=== PATIENT | male | born 1970 | race Caucasian/White ===

== ENCOUNTER 2016-05-09 07:01 | Emergency (ER) | payer SELFPAY ==
[~2016-05-09] VITALS: Ht 177.8 cm; Wt 91.0 kg
[2016-05-09 07:10] VITALS: BP 120/90; PULSE 71; RESP 16; TEMP 98.1; O2SAT 97
[2016-05-09] MEDS ORDERED: HYDR-3535 PO (07:20)
[2016-05-09] MEDS ORDERED: TIZA4CAP3 PO (07:20)
[2016-05-09] MEDS ORDERED: MOBI7.5T PO (07:20)
--- NOTE | 2016-05-09 07:32 | PD ---
HPI Chief Complaint: ENT Complaint Time Seen by Provider: 07:18 Travel History International Travel<30 days: No Contact w/Intl Traveler<30days: No Traveled to known affect area: No History of Present Illness HPI This patient complains of a wax blockage in his left ear. He is having difficulty hearing. He has no pain. Severity of symptoms is mild. PFSH Past Medical History Cancer: No Cardiovascular Problems: No Congestive Heart Failure: No Diabetes: No Diminished Hearing: No Gastrointestinal Disorders: Yes (GB ) Glaucoma: No Genitourinary: Yes (Retention) Headaches: Yes Hepatitis: Yes (C) Hiatal Hernia: No Hypertension: No Implanted Vascular Access Dvce: No Musculoskeletal: Yes (Bone spurs feet) Neurologic: Yes Respiratory: No Immunizations Current: Yes Migraines: Yes Thyroid Disease: No Tetanus Vaccination: < 5 Years Influenza Vaccination: Yes Past Surgical History Abdominal Surgery: Yes (APPENDECTOMY 1981) Appendectomy: Yes Cardiac Surgery: No Ear Surgery: No Endocrine Surgery: No Eye Surgery: No Genitourinary Surgery: Yes (hemorrhoids 08-14-) Gynecologic Surgery: Yes Neurologic Surgery: No Oral Surgery: No Pacemaker: No Thoracic Surgery: No Other Surgery: Yes (Hemorrhoidectomy) Social History Alcohol Use: Yes (Occ.) Tobacco Use: Yes (/2 ppd) Substance Use: No (denies) Allergies-Medications (Allergen,Severity, Reaction): Coded Allergies: Bactrim (Verified Allergy, Severe, Swelling, 05/09/16) Cipro (Verified Allergy, Intermediate, FACIAL SWELLING/FLUSHING, 05/09/16) Flexeril (Verified Allergy, Intermediate, Rash, 05/09/16) Toradol (Verified Allergy, Intermediate, 05/09/16) Tramadol (Verified Allergy, Intermediate, 05/09/16) Reported Meds & Prescriptions Reported Meds & Active Scripts Active Reported Tizanidine (Tizanidine HCl) 4 Mg Cap 4 Mg PO TID Mobic (Meloxicam) 7.5 Mg Tab 10 Mg PO TID Lortab (Hydrocodone-Acetaminophen) 10-325 Mg Tab 1 Tab PO Q4H PRN Review of Systems General / Constitutional: No: Fever HENT: No: Headaches Cardiovascular: No: Chest Pain or Discomfort Physical Exam Narrative NECK: Symmetrical appearance, midline trachea. No mass or crepitus. Thyroid without enlargement, tenderness, or mass. SKIN: Inspection shows no rash or ulcers. Palpation shows no induration or nodules. Throat clear Left TM is nonvisible due to cerumen impaction. Data Data Last Documented VS Vital Signs Date Time Temp Pulse Resp B/P Pulse Ox O2 Delivery O2 Flow Rate FiO2 05/09/16 07:10 98.1 71 16 120/90 97 MDM Medical Decision Making Medical Screen Exam Complete: Yes Emergency Medical Condition: Yes Medical Record Reviewed: Yes Differential Diagnosis Cerumen impaction, otitis media, otitis externa Narrative Course I have reviewed the patient's electronic medical record. In here multiple times for minor complaints Patient has left-sided cerumen impaction. It was irrigated out and significant amount of wax removed Diagnosis Primary Impression: Impacted cerumen of left ear Additional Instructions: The patient was advised to follow up with their physician and return if they worsen. Med/Other Pt SpecificInfo: Other Disposition: 01 DISCHARGE HOME Condition: Stable Tramaine Maria MD May 09, 2016 07:32
== END 2016-05-09 07:42 | disposition home or self-care (01) ==
LOC: PHED 07:01
DX: H61.22 Impacted cerumen, left ear (principal); F17.200 Nicotine dependence, unspecified, uncomplicated; Z87.19 Personal history of other diseases of the digestive system; Z87.448 Personal history of other diseases of urinary system; Z86.19 Personal history of other infectious and parasitic diseases; Z87.39 Personal history of other diseases of the musculoskeletal system and connective tissue; Z86.69 Personal history of other diseases of the nervous system and sense organs
CPT/HCPCS: 99282

== ENCOUNTER 2017-08-23 14:28 | Emergency (ER) | payer SELFPAY ==
[~2017-08-23 14:28] MED LIST: HYDR-3535 PO; MOBI7.5T PO; TIZA4CAP3 PO
[2017-08-23 14:34] VITALS: BP 121/77; PULSE 68; RESP 20; TEMP 98.1; O2SAT 97
--- NOTE | 2017-08-23 15:24 | PD ---
HPI Chief Complaint: Laceration/Skin Injury Time Seen by Provider: 14:42 Travel History International Travel<30 days: No Contact w/Intl Traveler<30days: No Traveled to known affect area: No History of Present Illness HPI 47-year-old male here with laceration to the right ankle caused by glass from a broken shower door. There is a laceration to the lateral malleolus. Injury occurred prior to arrival. Tetanus immunizations up-to-date. He reports mild to moderate pain at the site of laceration. No altered sensation or weakness of the ankle or foot. PFSH Past Medical History Cancer: No Cardiovascular Problems: No Congestive Heart Failure: No Cerebrovascular Accident: Yes Diabetes: No Diminished Hearing: No Gastrointestinal Disorders: Yes (GB ) Glaucoma: No Genitourinary: Yes (Retention) Headaches: Yes Hepatitis: Yes (C) Hiatal Hernia: No Hypertension: No Implanted Vascular Access Dvce: No Musculoskeletal: Yes (Bone spurs feet) Neurologic: Yes Respiratory: No Immunizations Current: Yes Migraines: Yes Thyroid Disease: No Tetanus Vaccination: < 5 Years Influenza Vaccination: Yes Past Surgical History Abdominal Surgery: Yes (APPENDECTOMY 1981) Appendectomy: Yes Cardiac Surgery: No Ear Surgery: No Endocrine Surgery: No Eye Surgery: No Genitourinary Surgery: Yes (hemorrhoids 08-15-15) Gynecologic Surgery: Yes Neurologic Surgery: No Oral Surgery: No Pacemaker: No Thoracic Surgery: No Other Surgery: Yes (Hemorrhoidectomy) Social History Alcohol Use: Yes (Occ.) Tobacco Use: Yes (1/2 ppd) Substance Use: No (denies) Allergies-Medications (Allergen,Severity, Reaction): Coded Allergies: sulfamethoxazole (Unverified Allergy, Severe, Swelling, 10/21/16) trimethoprim (Unverified Allergy, Severe, Swelling, 10/21/16) ciprofloxacin (Unverified Allergy, Intermediate, FACIAL SWELLING/FLUSHING , 10/21/16) cyclobenzaprine (Unverified Allergy, Intermediate, Rash, 10/21/16) ketorolac (Unverified Allergy, Intermediate, 10/21/16) tramadol (Unverified Allergy, Intermediate, 10/21/16) baclofen (Verified Allergy, Unknown, CANT SLEEP, 08/23/17) Reported Meds & Prescriptions Reported Meds & Active Scripts Active No Active Prescriptions or Reported Medications Review of Systems Except as stated in HPI: all other systems reviewed are Neg Physical Exam Narrative GENERAL: SKIN: Warm and dry. HEAD: Normocephalic. EYES: No injection or drainage. NECK: Supple CARDIOVASCULAR: Regular rate and rhythm RESPIRATORY: Breath sounds equal bilaterally. No accessory muscle use. GASTROINTESTINAL: Abdomen soft, non-tender, nondistended. MUSCULOSKELETAL: No cyanosis, or edema. Right lower extremity:3 centimeter laceration over the lateral malleolus. No tendon or vascular injury identified. Bleeding is well controlled. Range of motion of the ankle is intact. Palpable DP pulse. Sensation intact. Cap refill intact. Data Data Last Documented VS Vital Signs Date Time Temp Pulse Resp B/P (MAP) Pulse Ox O2 Delivery O2 Flow Rate FiO2 08/23/17 14:34 98.1 68 20 121/77 (92) 97 Orders Orders Ankle, Limited (Ap&Lat) (08/23/17 ) [facility] Medical Decision Making Medical Screen Exam Complete: Yes Emergency Medical Condition: Yes Differential Diagnosis Laceration, tendon injury, vascular injury, retained foreign body Narrative Course 47-year-old male with laceration to the right ankle. The extremity is neurovascularly intact. X-ray obtained to rule out retained foreign body Procedures Procedure Narrative LACERATION LOCATION: Right ankle lateral malleolus LENGTH: 3 cm NUMBER OF STITCHES/SHAMIKA: 11 REPAIR: The area of the laceration was prepped with Betadine and sterilely draped. The laceration was infiltrated with 1% lidocaine. The wound was copiously irrigated and explored without evidence of foreign body, tendon injury or neurovascular injury. The wound was closed using 4-0 Ethilon. This was a single layer repair. A sterile dressing was applied. The patient was advised to keep the dressing clean and dry. Patient tolerated the procedure well. Diagnosis Primary Impression: Laceration of ankle Qualified Codes: S91.011A - Laceration without foreign body, right ankle, initial encounter Referrals: Primary Care Physician Additional Instructions: Sutures need to be removed in 7-10 days. Follow-up with her primary doctor. Return if he develop signs or symptoms of infection as we discussed Scripts No Active Prescriptions or Reported Meds Disposition: 01 DISCHARGE HOME Condition: Stable Marianela Walls Aug 23, 2017 15:24
--- NOTE | 2017-08-23 15:57 | RADRPT ---
EXAM DATE: 08/23/2017 3:49 PM EDT AGE/SEX: 47 years / Male INDICATIONS: Right ankle pain after shower door broke and cut the patient's ankle. CLINICAL DATA: This is the patient's initial encounter. Patient reports that signs and symptoms have been present for 1 day and indicates a pain score of 8/10. MEDICAL/SURGICAL HISTORY: . Smoker. None. COMPARISON: No prior exams available for comparison. FINDINGS: Bony structures are intact and in normal alignment. Joints are intact without dislocation or signifi cant arthropathy. Osseous density is normal. Soft tissues are unremarkable. No radiopaque foreign bodies seen. CONCLUSION: The osseous structures of the ankle are grossly intact. No radiopaque foreign bodies. Electronically signed by: Austin Ervin MD 08/23/2017 3:55 PM EDT
== END 2017-08-23 16:28 | disposition home or self-care (01) ==
LOC: PHEFT 14:28
DX: S91.011A Laceration without foreign body, right ankle, initial encounter (principal); W25.XXXA Contact with sharp glass, initial encounter; Y93.E1 Activity, personal bathing and showering; Y92.002 Bathroom of unspecified non-institutional (private) residence as the place of occurrence of the external cause; Z72.0 Tobacco use; B19.20 Unspecified viral hepatitis C without hepatic coma
CPT/HCPCS: 12002; 73600